=== PATIENT | male | born 1990 | race Caucasian/White ===

== ENCOUNTER 2018-05-07 01:49 | Emergency (ER) | payer OTHER ==
[~2018-05-07] VITALS: Ht 175.3 cm; Wt 68.0 kg
[2018-05-07] MEDS ORDERED: NKM (01:57)
[2018-05-07 02:04] VITALS: BP 115/72
--- NOTE | 2018-05-07 02:17 | Emergency Room Report ---
History of Present Illness General Chief Complaint: Pain Source: Patient Present Illness HPI Patient had a snowboarding accident a month ago. He fell backwards and felt pain in his lower chest and upper abdomen at that time. He was never evaluated. There was a bump at that time in that area. Gradually it got better. He didn't notice any bruising. Tonight he was moving about and felt sharp pain that occurred in his right upper abdomen in the same area. He was concerned. There was/is no shortness of breath. No cough, NVD, hematuria. No fevers. Allergies: Coded Allergies: No Known Allergies (Unverified , 05/07/18) Patient History Past Medical History: see triage record Social History: Denies: smoking, alcohol use, drug use Social History Narrative Works at [employer] in [place] Reviewed Nursing Documentation: PMH: Agreed; PSxH: Agreed Nursing Documentation-PM Past Medical History: No Stated History Review of Systems All Other Systems: negative except mentioned in HPI Physical Exam Vital Signs Date Time Temp Pulse Resp B/P (MAP) Pulse Ox O2 Delivery O2 Flow Rate FiO2 05/07/18 01:52 98.1 72 18 115/72 100 Room Air Sp02 EP Interpretation: reviewed, normal General Appearance: well appearing, no apparent distress, GCS 15 Head: normocephalic, atraumatic Eyes: bilateral eye normal inspection, bilateral eye PERRL, bilateral eye EOMI ENT: hearing grossly normal, normal voice, moist mucus membranes Neck: full range of motion, supple Respiratory: lungs clear, normal breath sounds, no respiratory distress, speaking full sentences, other - R lower chest/upper abdominal pain Cardiovascular #1: regular rate, rhythm, no edema Cardiovascular #2: 2+ radial (R) Gastrointestinal: normal bowel sounds, no guarding, no rebound, tenderness - RUQ Genitourinary: no CVA tenderness Musculoskeletal: digits/nails normal, gait/station normal, normal range of motion, no calf tenderness Neurologic: alert, oriented x3, normal gait, grossly normal Psychiatric: mood/affect normal Skin: no rash, other - slightl erythema as he has been rubbing the area RUQ Medical Decision Making Diagnostic Impression: Primary Impression: Abdominal wall strain Qualified Codes: S39.011A - Strain of muscle, fascia and tendon of abdomen, initial encounter Additional Impression: Chest wall contusion Qualified Codes: S20.211A - Contusion of right front wall of thorax, initial encounter ER Course Patient presents after snowboarding injury with an acute exacerbation of pain after one month. Differential includes muscle strain, costicartilage separation , reinjury of liver, rib fracture, pneumothorax amongst others. Consideration of evaluation includes ultrasound versus CAT scan versus x-rays. Labs not indicated. Discussed with patient that the only way to evaluate solid organs, ribs would be CAT scan. He understands and agrees. He declines pain medication at this time. CT without solid large organ injury, pneumothorax or fractures. Her graph discussed results with patient. Also gave him copy of the CT scan. Patient stable for outpatient observation and treatment. CT/MRI/US Diagnostic Results CT/MRI/US Diagnostic Results : Imaging Test Ordered: chest and abdomen Impression Findings: The lungs are clear. No mediastinal adenopathy or abnormal fluid collections are seen. No pneumothorax identified. No pleural effusion identified. The heart is unremarkable. No free fluid identified within the abdomen or pelvis. Evaluation of solid organs is limited on noncontrast imaging. Moderate stool noted. The bladder is unremarkable. IMPRESSION: No acute findings demonstrated Last Vital Signs Date Time Temp Pulse Resp B/P (MAP) Pulse Ox O2 Delivery O2 Flow Rate FiO2 05/07/18 03:05 98.1 72 18 115/72 100 Room Air Status: unchanged Disposition: HOME, SELF-CARE Condition: Stable Referrals: [facility],REFERRING (PCP) Kj Brand MD May 07, 2018 02:17
[2018-05-07 03:05] VITALS: BP 115/72
--- NOTE | 2018-05-07 10:00 | Diagnostic Imaging Report ---
Indication: Chest and abdominal pain Technique: Continuous helical transaxial imaging of the chest, abdomen and pelvis was obtained from the thoracic inlet to the pubic symphysis. No IV contrast was administered. Coronal 2-D reformats were also obtained. Study obtained in a Siemens sensation [address] Total Dose length Product (DLP): 742.[address] Dose Index Volume (CTDIvol): 10.92 mGy Comparison: None Findings: The lungs are clear. No mediastinal adenopathy or abnormal fluid collections are seen. No pneumothorax identified. No pleural effusion identified. The heart is unremarkable. No free fluid identified within the abdomen or pelvis. Evaluation of solid organs is limited on noncontrast imaging. Moderate stool noted. The bladder is unremarkable. IMPRESSION: No acute findings demonstrated. Study is limited by the nonadministration of contrast material [facility] has communicated the preliminary results to the Emergency Department. Their findings are largely concordant with this report. The CT scanner at [facility] is accredited by the [employer] and the scans are performed using dose optimization techniques as appropriate to a performed exam including Automatic Exposure control.
== END 2018-05-07 03:05 | disposition home or self-care (01) ==
LOC: EMR 02:08
DX: S39.011A Strain of muscle, fascia and tendon of abdomen, initial encounter (principal); S20.211A Contusion of right front wall of thorax, initial encounter; Y93.23 Activity, snow (alpine) (downhill) skiing, snowboarding, sledding, tobogganing and snow tubing
CPT/HCPCS: 71250; 74176; 99284

== ENCOUNTER 2018-05-31 10:26 | Emergency (ER) | payer OTHER ==
[~2018-05-31] VITALS: Ht 185.4 cm; Wt 74.8 kg
[~2018-05-31 10:26] MED LIST: NKM
[2018-05-31 10:46] VITALS: BP 114/73
[2018-05-31] MEDS ORDERED: NKM (10:49)
[2018-05-31] MEDS ORDERED: IBUPROFEN600 MG ORAL (11:03)
[2018-05-31] MEDS ORDERED: AMOXICILLIN500 MG ORAL (11:03)
[2018-05-31 11:08] VITALS: BP 114/73
--- NOTE | 2018-05-31 11:10 | Emergency Room Report ---
History of Present Illness General Chief Complaint: Toothache Source: Patient Present Illness HPI Patient present with complaints of right-sided was into the pain Reports that over the past 5 days he has had increased pain to that region Pain is worse with chewing and swallowing He had complained of a mild sore throat as well denies any fevers or chills denies any recent trauma denies any jaw pain or trismus denies any ear pain denies any fevers or chills Allergies: Coded Allergies: No Known Allergies (Unverified , 05/07/18) Patient History Past Medical History: see triage record Pertinent Family History: none Reviewed Nursing Documentation: PMH: Agreed; PSxH: Agreed Nursing Documentation-PMH Past Medical History: No Stated History Review of Systems All Other Systems: negative except mentioned in HPI Physical Exam Vital Signs Date Time Temp Pulse Resp B/P (MAP) Pulse Ox O2 Delivery O2 Flow Rate FiO2 05/31/18 10:46 98.2 16 114/73 96 Room Air 05/31/18 10:46 84 Sp02 EP Interpretation: reviewed, normal General Appearance: well appearing, no apparent distress Head: normocephalic, atraumatic Eyes: bilateral eye PERRL, bilateral eye EOMI ENT: other - Was and tooth evident in the right lower molar region, no obvious fluctuance or fullness airway is patent Neck: supple Respiratory: lungs clear, no retraction, no accessory muscle use Musculoskeletal: normal inspection Neurologic: alert, oriented x3 Skin: normal color, no rash Lymphatic: no adenopathy Medical Decision Making Diagnostic Impression: Primary Impression: Toothache ER Course Multiple differentials are considered patient does not show any signs of trismus does not appear septic or toxic given the increased discomfort to a tooth that was there previously consideration for deeper infection is made Patient placed on antibiotics and requires close outpatient follow-up Last Vital Signs Date Time Temp Pulse Resp B/P (MAP) Pulse Ox O2 Delivery O2 Flow Rate FiO2 05/31/18 10:46 98.2 84 16 114/73 96 Room Air Status: unchanged Disposition: HOME, SELF-CARE Condition: Stable Scripts Amoxicillin* (AMOXIL*) 500 Mg Capsule 500 MG ORAL THREE TIMES A DAY, #21 CAP Prov: Douglas Winters DO 05/31/18 Ibuprofen* (MOTRIN*) 600 Mg Tablet 600 MG ORAL Q8H PRN for For Pain, #20 TAB 0 Refills Prov: Douglas Winters DO 05/31/18 Referrals: [facility] Corrigan [facility] INFO: New Patient Screening: Mon-Thurs 8am-1pm Mon- Thurs 9am -5pm and Fri 2pm-5pm Patient Instructions: Dental Pain Additional Instructions: Patient is provided with the discharge instructions notified to follow up with primary doctor/ dentist in the next 2-3 days otherwise return to the er with any worsening symptoms. Please note that this report is being documented using [employer] technology. This can lead to erroneous entry secondary to incorrect interpretation by the dictating instrument. Douglas Winters DO May 31, 2018 11:10
== END 2018-05-31 11:09 | disposition home or self-care (01) ==
LOC: EMR 11:05
DX: K08.89 Other specified disorders of teeth and supporting structures (principal)
CPT/HCPCS: 99282